=== PATIENT | female | born 1985 | race Caucasian/White ===

== ENCOUNTER 2017-09-25 11:45 | Emergency (ER) | payer OTHER ==
[~2017-09-25] VITALS: Ht 154.9 cm; Wt 96.8 kg
[~2017-09-25 11:45] MED LIST: AMITRIPTYLINE H10 MG PO; BENTYL20 MG PO; CIPRO500 MG PO; CLONIDINE HCL0.1 MG PO; ELAVIL10 MG PO; INDERAL40 MG PO; NOHOMEMEDS; PRILOSEC OTC20 MG PO; PROTONIX40 MG PO; REGLAN10 MG PO; TORADOL10 MG PO; TRAMADOL HCL50 MG PO; TRAZODONE HCL50 MG PO; ZOFRAN4 MG PO
[2017-09-25] MEDS ORDERED: BACTRIM,SEPT1 TABLET PO (14:39)
[2017-09-25 14:44] VITALS: BP 141/87
== END 2017-09-25 14:56 | disposition home or self-care (01) ==
LOC: EME 11:45
PROVIDERS: Physician Assistant
PROC: 0H91XZZ Drainage of Face Skin, External Approach (ICD-10-PCS; principal; 2017-09-25)
DX: L02.01 Cutaneous abscess of face (principal); Z87.2 Personal history of diseases of the skin and subcutaneous tissue
CPT/HCPCS: 82948; 99281; 99284